=== PATIENT | male | born 1960 | race Caucasian/White ===

== ENCOUNTER 2016-11-11 13:17 | Emergency (ER) | payer OTHER ==
[~2016-11-11] VITALS: Ht 182.9 cm; Wt 118.2 kg
[~2016-11-11 13:17] MED LIST: ASPI325T32 PO; ATOR20TA65 PO; OMAL150V SQ
[2016-11-11 13:21] VITALS: BP 129/77; PULSE 89; RESP 16; O2SAT 97
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
[2016-11-11 14:16] VITALS: BP 129/77; PULSE 89; RESP 16; O2SAT 97
== END 2016-11-11 14:14 | disposition home or self-care (01) ==
LOC: SED 13:17
DX: S01.81XA Laceration without foreign body of other part of head, initial encounter (principal); Y04.0XXA Assault by unarmed brawl or fight, initial encounter; Y93.89 Activity, other specified; Y92.239 Unspecified place in hospital as the place of occurrence of the external cause; Y99.0 Civilian activity done for income or pay; Z79.82 Long term (current) use of aspirin; Z91.040 Latex allergy status